=== PATIENT | male | born 1975 | race Caucasian/White ===

== ENCOUNTER 2023-03-13 19:51 | Emergency (ER) | payer BC, SELFPAY ==
--- NOTE | 2023-03-13 19:55 | ECG_ITS ---
Measurements Intervals [place] Rate: 65 P: 70 [place]: 162 QRS: 66 QRSD: 103 T: 39 QT: 431 QTc: 449 Interpretive Statements SINUS RHYTHM NORMAL ECG NO PREVIOUS ECG AVAILABLE FOR COMPARISON Electronically Signed On 03-14-2023 13:20:25 CDT by Salty Frankel M.D.
[2023-03-13 19:59] VITALS: BP 114/70; PULSE 63; RESP 16; TEMP 36.6; O2SAT 100
[2023-03-13 20:29] LABS: Basophils Percent Auto 0.6 % (0.2-1.2); Eosinophils Absolute Auto 0.1 K/mm3 (0-0.3); Hematocrit 38.3 % (42.0-52.0); Hemoglobin 12.5 g/dL (14.0-18.0); Lymphocytes Absolute Auto 1.44 K/mm3 (0.9-3.2); Lymphocytes Percent Auto 40.8 % (18.3-44.2); Mean Corpuscular HGB Conc 32.6 g/dl (32-36); Mean Corpuscular Hemoglobin 28.7 pg (26-34); Mean Platelet Volume 11.1 fl (7.4-10.4); Monocytes Absolute Auto 0.3 K/mm3 (0.1-0.6); Monocytes Percent Auto 8.8 % (2.6-8.5); Neutrophils Absolute Auto 1.7 K/mm3 (1.3-6.7); Neutrophils Percent Auto 47.8 % (45.5-73.1); Platelet Count Result 153 k/mm3 (150-375); Red Blood Count 4.35 M/mm3 (4.6-6.20); Red Cell Distribution Width 12.8 % (11.5-14.5); White Blood Count 3.5 K/mm3 (4.5-10.0)
[2023-03-13 20:36] LABS: Alanine Aminotransferase 19 U/L (6-50); Albumin Level 4.3 g/dL (3.5-5.1); Alkaline Phosphatase 46 U/L (38-126); Anion Gap 8 mmol/L (8-16); Aspartate Amino Transferase 24 U/L (17-59); Bilirubin,Total 0.5 mg/dL (0.2-1.3); Blood Urea Nitrogen 9 mg/dL (9-20); Calcium 8.7 mg/dL (8.4-10.2); Carbon Dioxide 29 mmol/L (22-30); Chloride 102 mmol/L (98-107); Estimated CRCL calculation 86 ml/min; Estimated Glomerular Filt Rate > 60; Glucose 114 mg/dL (65-110); Sodium 139 mmol/L (137-145)
--- NOTE | 2023-03-13 23:46 | ED.SYNCOPE ---
HPI - Syncope General Chief Complaint: Syncope Stated Complaint: syncope Time Seen by Provider: 03/13/23 23:31 History of Present Illness HPI narrative: 47-year-old male here for evaluation after syncope. Patient states that his walked to dinner about 2 and half miles from their home. He had 1-1/2 beers at the dinner. He stood up to go home and he felt lightheaded. He said for a few seconds and then passed out. He did not hit his head. His witnessed the event and states that he never fully closed his eyes. Patient denies any preceding chest pain, palpitations, shortness of breath, leg swelling, fevers or chills, cough or congestion, headache. He states he feels in his usual state of health currently. He does have a history of neutropenia for which she has seen a knitting demonstrator and there has not been any clear etiology of this. Related Data Allergies Allergy/AdvReac Type Severity Reaction Status Date / Time No Known Allergies Allergy Mild Verified 09/14/10 13:03 Review of Systems Review of Systems: Gen: Reports syncope Eyes: Denies eye pain or visual change ENT: Denies congestion Respiratory: Denies shortness of breath or cough CV: Denies chest pain or palpitations GI: Denies abdominal pain nausea, emesis or diarrhea denies burning, urgency, frequency or hematuria Musculoskeletal: Denies back pain or muscle pain Neuro: Denies numbness, tingling, weakness or focal weakness Skin: Denies rash Except as documented, all other systems reviewed and negative Exam Narrative: APPEARANCE: Well appearing, no pain in distress, well-nourished. Head: Normocephalic and atraumatic. EYES: PERRLA/EOMI, conjunctivae clear NOSE: No nasal drainage EARS: External ear normal in appearance THROAT: Oropharynx is clear. Mucous membranes are moist. NECK: Supple. No adenopathy, no masses. RESPIRATORY: Airway patent, respirations nonlabored. Clear to auscultation bilaterally, no rales, rhonchi, wheezing. CARDIOVASCULAR: Regular rate and rhythm without murmurs, rubs, or gallops. ABDOMINAL: Normoactive bowel sounds. Soft, nontender, nondistended. No rebound tenderness or guarding. MUSCULOSKELETAL: Extremities are warm and well-perfused. Moves all extremities well. No edema. NEURO: Normal speech. No focal neurologic deficits. SKIN: Skin is warm and dry. No rashes. PSYCHIATRIC: Normal affect/mood. Course Vital Signs Vital signs: Vital Signs Temperature 97.8 F 03/13/23 19:59 Pulse Rate 63 03/13/23 19:59 Respiratory Rate 16 03/13/23 19:59 Blood Pressure 114/70 03/13/23 19:59 Pulse Oximetry 100 03/13/23 19:59 Oxygen Delivery Room Air 03/13/23 19:59 Temperature 97.8 F 03/13/23 19:59 Pulse Rate 82 03/14/23 00:57 Respiratory Rate 15 03/14/23 00:57 Blood Pressure 116/78 03/14/23 00:57 Pulse Oximetry 99 03/14/23 00:57 Oxygen Delivery Room Air 03/13/23 19:59 MDM - Syncope MDM Narrative Medical decision making narrative: 47-year-old male here for evaluation after syncope that sounds most consistent with vasovagal syncope. He is asymptomatic currently and has normal vital signs. His EKG is in sinus rhythm. Basic labs and troponin unremarkable aside from a slight neutropenia which patient states is chronic. He is appropriate for outpatient management and follow-up, low risk syncope by the [place] syncope rule. We discussed return precautions and he voiced understanding. Lab Data 03/13/23 20:19 03/13/23 20:19 Labs: Lab Results 03/13/23 Range/Units 20:19 WBC 3.5 L (4.5-10.0) K/mm3 RBC 4.35 L (4.6-6.20) M/mm3 Hgb 12.5 L (14.0-18.0) g/dL Hct 38.3 L (42.0-52.0) % MCV 88.0 (80-100) fl MCH 28.7 (26-34) pg MCHC 32.6 (32-36) g/dl RDW 12.8 (11.5-14.5) % Plt Count 153 (150-375) k/mm3 MPV 11.1 H (7.4-10.4) fl Immature Gran % (Auto) 0.0 (0-0.5) % Neut % (Auto) 47.8 (45.5-73.1) % Lymph % (Auto) 40.8 (18.3-44.2) %
[2023-03-14 00:27] LABS: Troponin I < 0.012 ng/mL (0.000-0.034)
[2023-03-14 00:57] VITALS: BP 116/78; PULSE 82; RESP 15; O2SAT 99
== END 2023-03-14 00:59 | disposition home or self-care (01) ==
PROVIDERS: Emergency Medicine; Emergency Provider Physician Assistant; PCP Physician Assistant
DX: R55 Syncope and collapse (principal)
CPT/HCPCS: 36415; 80053; 84484; 85025; 93005; 99284